=== PATIENT | male | born 1960 | race African-American/Black ===

== ENCOUNTER 2019-05-22 00:06 | Emergency (ER) | payer OTHER ==
[~2019-05-22] VITALS: Ht 190.5 cm; Wt 95.3 kg
[2019-05-22] MEDS ORDERED: NORFLEX100MG PO (03:44)
[2019-05-22] MEDS ORDERED: KETO10TA2 PO (03:44)
== END 2019-05-22 03:55 ==
LOC: ER 00:06
DX: S33.5XXA Sprain of ligaments of lumbar spine, initial encounter (principal); X58.XXXA Exposure to other specified factors, initial encounter; Y93.89 Activity, other specified; Y92.89 Other specified places as the place of occurrence of the external cause; Y99.8 Other external cause status; M54.5 Low back pain